=== PATIENT | female | born 1980 | race Two or more races ===

== ENCOUNTER → 2024-08-02 | Outpatient (CLI) | payer BC, SELFPAY ==
[2024-08-01 10:08] LABS: Basophils # (Auto) 0.1 Thou/mm3 (0.0-0.2); Basophils % (Auto) 1 % (0-2.5); Eosinophils # (Auto) 0.1 Thou/mm3 (0.0-0.5); Eosinophils % (Auto) 1 % (0-10); Hematocrit 40.3 % (36.0-46.0); Immature Granulocytes % (Auto) 1 % (0-0); Immature Granulocytes Auto 0.05 Thou/mm3 (0.00-0.00); Lymphocytes % (Auto) 36 % (10-50); Mean Corpuscular HGB Conc 32.3 g/dl (31.0-37.0); Mean Corpuscular Hemoglobin 25.1 pg (25.0-35.0); Mean Corpuscular Volume 78 fL (80-100); Monocytes # (Auto) 0.5 Thou/mm3 (0.0-0.8); Monocytes % (Auto) 5 % (0-12); Neutrophils # (Auto) 6.2 Thou/mm3 (1.8-7.7); Neutrophils % (Auto) 57 % (37-80); Nucleated Red Blood Cell % 0 /100 WBC (0); Platelet Count 373 Thou/mm3 (140-440); RDW Standard Deviation 43.7 fL (36.4-46.3); Red Blood Count 5.17 Miln/mm3 (4.00-5.20)
[2024-08-01 10:15] LABS: Partial Thromboplastin Time 28.8 Seconds (22.0-36.0); Prothrombin Time 11.3 Seconds (9.0-12.2)
[2024-08-01 10:52] LABS: HCG,Qualitative Serum Negative
--- NOTE | 2024-08-02 10:00 | XR_ITS ---
Examination: Stereotactic guided vacuum assisted left breast biopsy with clip placement Specimen radiograph Date and time of exam:August 02, 2024 1132 hours INDICATIONS: Mammogram June 22, 2024 BI-RADS 4 suspicious microcalcifications retroareolar region left breast Timeout performed, documenting correct patient, order, referring physician, patient's site and reason for procedure, allergies to medications Informed consent provided. Time out performed Technique: The lesion left was localized with a stereotactic apparatus. Local anesthesia was obtained after prepping the skin at the entrance site and applying sterile drape Maximum sterile barrier technique. 9 core biopsies were then obtained, vacuum assisted, stereotactically guided, at the lesion site. Specimens appear adequate. Stereotactic breast marker was introduced at the lesion site Estimated blood loss 2 cc. Patient tolerated the procedure well and appeared in satisfactory and stable condition at completion of the procedure Pathology report to follow Impression: Successful stereotactic breast biopsy as described above. Specimen radiograph contains the biopsied suspicious microcalcifications.
== END | disposition home or self-care (01) ==
LOC: CDIM 08-04 08:10
PROVIDERS: Radiology Diagnostic Radiology; PCP Internal Medicine; Referring Provider Obstetrics & Gynecology; Visit Provider Obstetrics & Gynecology
DX: D24.2 Benign neoplasm of left breast (principal); N60.12 Diffuse cystic mastopathy of left breast; Z01.812 Encounter for preprocedural laboratory examination
CPT/HCPCS: 19081; 36415; 84703; 85025; 85610; 85730; A4648; A4649

== ENCOUNTER → 2025-02-03 | Outpatient (CLI) | payer BC, SELFPAY ==
--- NOTE | 2025-02-03 13:00 | XR_ITS ---
Examination: Breast ultrasound, unilateral, left complete Date and time of exam: February 03, 2025 at 1301 hours INDICATIONS: Breast cystic disease, post biopsy of microcalcifications left breast August 02, 2024 Technique: Real-time loaiza scale ultrasonographic imaging performed left breast including all 4 quadrants as well as nipple retroareolar and axillary region. Findings: 11:00 cyst 5 x 6 mm Retroareolar cyst 5 x 6 mm No solid nodules Probably benign glandular tissue in the retroareolar region left breast IMPRESSION: BI-RADS Category 3: Probably benign findings Recommend 1 additional 6 month left breast sonogram follow-up
--- NOTE | 2025-02-03 13:30 | XR_ITS ---
Examination: Diagnostic digital mammography, unilateral, left Computer aided detection 3-D breast Tomosynthesis, unilateral Date and time of exam: February 03, 2025 1318 hours INDICATIONS: History left breast stereotactic biopsy August 02, 2024, suspicious microcalcifications retroareolar region left breast Technique: Nonmagnified MLO, CC views of the left breast have been obtained, reconstructed from 3-D Tomosynthesis images. R2 computer aided detection program utilized for evaluation of suspicious masses and/or abnormal calcifications. 3-D Tomosynthesis images obtained. Findings: The breast is heterogeneously dense, which may obscure small masses Breast biopsy marker retroareolar region left breast with adjacent calcifications Calcifications are stable compared to the 04/29/2024 study No interval suspicious mass Impression: BI-RADS category 2: Benign findings Recommend yearly follow-up mammography
== END | disposition home or self-care (01) ==
LOC: CDIM 12:49
PROVIDERS: PCP Internal Medicine; Referring Provider Obstetrics & Gynecology; Visit Provider Obstetrics & Gynecology
DX: R92.322 Mammographic fibroglandular density, left breast (principal); R92.1 Mammographic calcification found on diagnostic imaging of breast
CPT/HCPCS: 76641; 77061; 77065; G0279

== ENCOUNTER → 2025-06-20 | Outpatient (CLI) | payer BC, SELFPAY ==
--- NOTE | 2025-06-20 10:15 | XR_ITS ---
Examination: Diagnostic digital mammography, bilateral Computer aided detection 3-D breast Tomosynthesis, bilateral Date and time of exam: 06/20/2025 9:56 a.m. Comparisons: April 2024 through January 2025 Indications: Prior left stereo biopsy Technique: Nonmagnified MLO, CC views of the breasts to been obtained, reconstructed from 3-D Tomosynthesis images. R2 computer aided detection program utilized for evaluation of suspicious masses and/or abnormal calcifications. 3-D Tomosynthesis images obtained. Findings: The breasts are heterogeneously dense, which may obscure small masses. No evidence of abnormal masses or suspicious calcifications. Impression: BI-RADS category 1: Negative findings (within normal) Recommend 1 year follow-up mammogram
== END | disposition home or self-care (01) ==
LOC: CDIM 09:52
PROVIDERS: PCP Internal Medicine; Referring Provider Obstetrics & Gynecology; Visit Provider Obstetrics & Gynecology
DX: R92.313 Mammographic fatty tissue density, bilateral breasts (principal)
CPT/HCPCS: 77062; 77066; G0279

== ENCOUNTER → 2025-06-29 | Outpatient (CLI) | payer BC, SELFPAY ==
--- NOTE | 2025-06-29 11:00 | XR_ITS ---
Examination: Breast ultrasound complete, bilateral Date and time of exam: June 29, 2025, 1114 hours INDICATIONS: Left breast pain several months, history left breast biopsy July 2024, no family history of breast cancer Technique: Real-time grayscale ultrasonographic imaging bilateral breasts, including all 4 quadrants as well as nipple retroareolar and axillary regions. Findings: Sonographic images right breast 10:00 cyst 6 x 5 mm 11:00 cyst 6 x 5 mm No solid nodules Sonographic images left breast 10:00 cyst 4 x 5 mm Retroareolar cyst 5 x 6 mm No solid nodules IMPRESSION: BI-RADS Category 2: Benign findings
== END | disposition home or self-care (01) ==
LOC: SDIM 10:52
PROVIDERS: PCP Internal Medicine; Referring Provider Obstetrics & Gynecology; Visit Provider Obstetrics & Gynecology
DX: N64.4 Mastodynia (principal)
CPT/HCPCS: 76641